=== PATIENT | male | born 1970 | race Two or more races ===

== ENCOUNTER 2017-02-19 20:31 | Emergency (ER) | payer OTHER ==
[~2017-02-19] VITALS: Ht 177.8 cm; Wt 84.4 kg
[2017-02-19 20:50] VITALS: BP 125/81
== END 2017-02-20 00:21 | disposition home or self-care (01) ==
LOC: ER 20:31
DX: S02.40DA Maxillary fracture, left side, initial encounter for closed fracture (principal); S01.111A Laceration without foreign body of right eyelid and periocular area, initial encounter; Y08.89XA Assault by other specified means, initial encounter; Y93.89 Activity, other specified; Y99.8 Other external cause status; Y92.89 Other specified places as the place of occurrence of the external cause
CPT/HCPCS: 70486